=== PATIENT | female | born 1970 | race Caucasian/White ===

== ENCOUNTER 2018-06-18 05:42 | Inpatient (IN) | payer OTHER ==
[2018-06-18] MEDS ORDERED: MIDAZOLAM 1 MG/ML 2 ML INJ (07:27)
[2018-06-18] MEDS ORDERED: DEXAMETHASONE 4 MG/ML 5 ML INJ (07:27)
[2018-06-18] MEDS ORDERED: ONDANSETRON 4 MG INJ (07:27)
[2018-06-18] MEDS ORDERED: FENTAnyl 50 MCG/ML VIAL (07:27)
[2018-06-18] MEDS ORDERED: CEFAZOLIN 1 GM INJ (07:27)
[2018-06-18] MEDS ORDERED: ROCURONIUM 50 MG INJ (07:27)
[2018-06-18] MEDS ORDERED: GLYCOPYRROLATE 0.4 MG INJ (07:27)
[2018-06-18] MEDS ORDERED: PROPOFOL 20 ML (07:27)
[2018-06-18] MEDS ORDERED: NEOSTIGMINE 3 MG/3 ML SYRINGE (07:27)
[2018-06-18] MEDS ORDERED: morphine SULFATE/PF (10 MG/10 ML) INJ (07:28)
[2018-06-18] MEDS ORDERED: NALOXONE (0.4 MG/ML) INJ IV (07:30)
[2018-06-18] MEDS ORDERED: ONDANSETRON 4 MG INJ IV ×2 (07:30)
[2018-06-18] MEDS ORDERED: FENTAnyl 50 MCG/ML VIAL IV ×3 (07:30)
[2018-06-18] MEDS ORDERED: EPHEDrine 25 MG/5 ML SYG IV (07:30)
[2018-06-18] MEDS ORDERED: KETOROLAC 30 MG INJ IV ×2 (07:30→08:00)
[2018-06-18] MEDS ORDERED: OXYCODONE/ACETAMINOPHEN (5/325) TAB PO ×2 (07:30)
[2018-06-18] MEDS ORDERED: NALBUPHINE HCL (10 MG/1 ML) INJ IV (07:30)
[2018-06-18] MEDS ORDERED: DIPHENHYDRAMINE 50 MG INJ IV ×2 (07:30)
[2018-06-18] MEDS ORDERED: TRIMETHOBENZAMIDE 100 MG/ML VIAL IM ×2 (07:30)
[2018-06-18] MEDS ORDERED: MIDAZOLAM 1 MG/ML 2 ML INJ IV (07:30)
[2018-06-18] MEDS ORDERED: LABETALOL HCL 20MG INJ IV (07:30)
[2018-06-18] MEDS ORDERED: IPRATROPIUM (NEB) 0.5 MG/2.5 ML AMP HHN (07:30)
[2018-06-18] MEDS ORDERED: DESFLURANE 15 MIN (07:30)
[2018-06-18] MEDS ORDERED: hydrALAzine 20 MG INJ IV (07:30)
[2018-06-18] MEDS ORDERED: HYDROmorphONE 1 MG/5 ML IV SYRINGE IV ×3 (07:30)
[2018-06-18] MEDS ORDERED: HYDROmorphONE 0.5 MG/0.5 ML SYG IV ×2 (07:30)
[2018-06-18] MEDS ORDERED: ALBUTEROL 0.083% (NEB) 2.5 MG/3 ML AMP HHN (07:30)
[2018-06-18] MEDS: CEFAZOLIN 1 GM/50 ML (PMX) 50 ML IVPB ×3 (07:50→23:37)
[2018-06-18] MEDS: metroNIDAZOLE 500 MG/NS (PMX) 100 ML IVPB (07:55)
[2018-06-18] MEDS ORDERED: METOCLOPRAMIDE 10 MG INJ IV (08:00)
[2018-06-18] MEDS ORDERED: morphine 2 MG INJ IV (08:00)
[2018-06-18] MEDS: LACTATED RINGER'S 1,000 ML IV ×3 (09:36→23:37)
[2018-06-18] MEDS: ONDANSETRON 4 MG INJ IV (10:07)
[2018-06-18] MEDS: MEPERIDINE 25 MG INJ IV (10:08)
[2018-06-19] MEDS: LACTATED RINGER'S 1,000 ML IV ×2 (03:30→15:01)
[2018-06-19 05:32] LABS: ADD MAN DIFF? NO
[2018-06-19 05:39] LABS: BASOPHILS % 0.2 % (0.0-2.0); EOSINOPHILS % 0.1 % (0.0-7.0); HEMATOCRIT 32.7 % (37.0-47.0); HEMOGLOBIN 11.2 g/dl (12.0-16.0); LYMPHOCYTES # 2.1 10^3/ul (0.8-2.9); LYMPHOCYTES % 16.1 % (15.0-51.0); MEAN CORPUSCULAR HEMOGLOBIN 33.8 pg (29.0-33.0); MEAN CORPUSCULAR HGB CONC 34.3 g/dl (32.0-37.0); MEAN CORPUSCULAR VOLUME 98.8 fl (82.0-101.0); MEAN PLATELET VOLUME 12.4 fl (7.4-10.4); MONOCYTE # 1.1 10^3/ul (0.3-0.9); MONOCYTES % 8.7 % (0.0-11.0); NEUTROPHIL # 9.8 10^3/ul (1.6-7.5); NEUTROPHILS % 74.5 % (39.0-77.0); PLATELET COUNT 167 10^3/UL (140-415); RED BLOOD COUNT 3.31 10^6/ul (4.20-5.40)
[2018-06-19 05:39] LABS: WHITE BLOOD COUNT 13.1 10^3/ul (4.8-10.8)
[2018-06-19 06:17] LABS: ANION GAP 5 (5-13); BLOOD UREA NITROGEN 9 mg/dl (7-20); CALCIUM 8.5 mg/dl (8.4-10.2); CARBON DIOXIDE 28 mmol/L (21-31); CHLORIDE 108 mmol/L (97-110); CREATININE 0.64 mg/dl (0.44-1.00); Estimated GFR > 60 mL/min (>60); GLUCOSE 108 mg/dl (70-220); POTASSIUM 3.9 mmol/L (3.5-5.1); SODIUM 141 mmol/L (135-144)
[2018-06-19] MEDS: HYDROCODONE/APAP (5/325) TAB PO (08:24)
[2018-06-19] MEDS: ENOXAPARIN 40 MG/0.4 ML SYG SC (08:25)
[2018-06-19] MEDS ORDERED: BISACODYL 10 MG SUPP PR (22:30)
[2018-06-19] MEDS: BISACODYL 30 ML ENEMA PR (22:30)
[2018-06-19] MEDS: DOCUSATE SODIUM 100 MG CAP PO (22:48)
[2018-06-19] MEDS: BISACODYL (EC) 5 MG TAB PO (22:48)
[2018-06-19] MEDS: MAGNESIUM HYDROXIDE 30ML CUP PO (22:48)
[2018-06-20] MEDS: LACTATED RINGER'S 1,000 ML IV (03:08)
[2018-06-20] MEDS: ENOXAPARIN 40 MG/0.4 ML SYG SC (08:27)
== END 2018-06-20 10:55 | disposition home or self-care (01) | DRG 743 ==
LOC: REC 05:42 → MS1 10:56
PROC: 0UT90ZZ Resection of Uterus, Open Approach (ICD-10-PCS; principal; 2018-06-18 07:23)
PROC: 0UT20ZZ Resection of Bilateral Ovaries, Open Approach (ICD-10-PCS; 2018-06-18 07:23)
PROC: 0UT70ZZ Resection of Bilateral Fallopian Tubes, Open Approach (ICD-10-PCS; 2018-06-18 07:23)
DX: D25.9 Leiomyoma of uterus, unspecified (principal); N80.0 Endometriosis of uterus; N92.1 Excessive and frequent menstruation with irregular cycle; E78.5 Hyperlipidemia, unspecified; R10.2 Pelvic and perineal pain; R73.03 Prediabetes; E66.9 Obesity, unspecified; Z68.29 Body mass index [BMI] 29.0-29.9, adult
CPT/HCPCS: 80048; 85025; 88305

== ENCOUNTER 2018-07-10 19:22 | Emergency (ER) | payer OTHER ==
[2018-07-10 21:00] LABS: ADD MAN DIFF? NO
[2018-07-10 21:03] LABS: BASOPHILS % 0.4 % (0.0-2.0); EOSINOPHILS # 0.2 10^3/ul (0.0-0.5); EOSINOPHILS % 1.7 % (0.0-7.0); HEMATOCRIT 37.1 % (37.0-47.0); HEMOGLOBIN 12.5 g/dl (12.0-16.0); LYMPHOCYTES # 3.2 10^3/ul (0.8-2.9); LYMPHOCYTES % 31.9 % (15.0-51.0); MEAN CORPUSCULAR HEMOGLOBIN 33.2 pg (29.0-33.0); MEAN CORPUSCULAR HGB CONC 33.7 g/dl (32.0-37.0); MEAN CORPUSCULAR VOLUME 98.7 fl (82.0-101.0); MEAN PLATELET VOLUME 11.4 fl (7.4-10.4); MONOCYTE # 0.7 10^3/ul (0.3-0.9); MONOCYTES % 7.1 % (0.0-11.0); NEUTROPHIL # 5.9 10^3/ul (1.6-7.5); NEUTROPHILS % 58.5 % (39.0-77.0); PLATELET COUNT 224 10^3/UL (140-415); RED BLOOD COUNT 3.76 10^6/ul (4.20-5.40); RED CELL DISTRIBUTION WIDTH 11.4 % (11.5-14.5)
[2018-07-10 21:03] LABS: WHITE BLOOD COUNT 10.1 10^3/ul (4.8-10.8)
[2018-07-10 21:20] LABS: ALANINE AMINOTRANSFERASE 24 IU/L (13-69); ALBUMIN 4.3 g/dl (3.3-4.9); ALBUMIN/GLOBULIN RATIO 1.26; ALKALINE PHOSPHATASE 94 IU/L (42-121); ANION GAP 9 (5-13); ASPARTATE AMINO TRANSFERASE 26 IU/L (15-46); BILIRUBIN,INDIRECT 0.5 mg/dl (0-1.1); BILIRUBIN,TOTAL 0.5 mg/dl (0.2-1.3); BLOOD UREA NITROGEN 13 mg/dl (7-20); CALCIUM 9.3 mg/dl (8.4-10.2); CARBON DIOXIDE 30 mmol/L (21-31); CHLORIDE 103 mmol/L (97-110); Estimated GFR > 60 mL/min (>60); GLUCOSE 101 mg/dl (70-220); POTASSIUM 4.2 mmol/L (3.5-5.1); SODIUM 142 mmol/L (135-144); TOTAL PROTEIN 7.7 g/dl (6.1-8.1)
[2018-07-10 21:33] LABS: INR 0.91; PROTIME 12.4 Sec (11.9-14.9)
[2018-07-10 21:34] LABS: PARTIAL THROMBOPLASTIN TIME 30.6 Sec (23.0-35.0)
== END 2018-07-10 23:03 | disposition home or self-care (01) ==
LOC: FTE 19:22
DX: M79.661 Pain in right lower leg (principal); M79.662 Pain in left lower leg
CPT/HCPCS: 80053; 85025; 85610; 85730; 93970; 99284-25

== ENCOUNTER 2018-09-07 12:57 | Emergency (ER) | payer OTHER ==
[2018-09-07 14:43] LABS: ADD MAN DIFF? NO
[2018-09-07 14:46] LABS: BASOPHILS % 0.4 % (0.0-2.0); EOSINOPHILS # 0.1 10^3/ul (0.0-0.5); EOSINOPHILS % 0.7 % (0.0-7.0); HEMATOCRIT 40.2 % (37.0-47.0); HEMOGLOBIN 13.6 g/dl (12.0-16.0); LYMPHOCYTES # 2.7 10^3/ul (0.8-2.9); LYMPHOCYTES % 28.8 % (15.0-51.0); MEAN CORPUSCULAR HEMOGLOBIN 33.2 pg (29.0-33.0); MEAN CORPUSCULAR HGB CONC 33.8 g/dl (32.0-37.0); MEAN PLATELET VOLUME 11.8 fl (7.4-10.4); MONOCYTE # 0.7 10^3/ul (0.3-0.9); MONOCYTES % 7.1 % (0.0-11.0); NEUTROPHIL # 5.9 10^3/ul (1.6-7.5); NEUTROPHILS % 62.7 % (39.0-77.0); PLATELET COUNT 193 10^3/UL (140-415); RED CELL DISTRIBUTION WIDTH 11.8 % (11.5-14.5)
[2018-09-07 14:46] LABS: WHITE BLOOD COUNT 9.4 10^3/ul (4.8-10.8)
[2018-09-07] MEDS: ONDANSETRON 4 MG INJ IV (14:47)
[2018-09-07] MEDS: SOD CHLORIDE 0.9% 1,000 ML IV (14:48)
[2018-09-07] MEDS: ACETAMINOPHEN 500 MG TAB PO (14:50)
[2018-09-07 14:56] LABS: ADD UMIC YES; UR ASCORBIC ACID NEGATIVE (NEGATIVE); UR BILIRUBIN (Dip) NEGATIVE (NEGATIVE); UR BLOOD (Dip) NEGATIVE (NEGATIVE); UR CLARITY CLOUDY (CLEAR); UR COLOR YELLOW (YELLOW); UR GLUCOSE (Dip) NEGATIVE (NEGATIVE); UR KETONES (Dip) NEGATIVE (NEGATIVE); UR LEUKOCYTE ESTERASE (Dip) NEGATIVE Leu/ul (NEGATIVE); UR NITRITE (Dip) NEGATIVE (NEGATIVE); UR RBC 0 /HPF (0-5); UR SPECIFIC GRAVITY (Dip) 1.004 (1.003-1.030); UR TOTAL PROTEIN (Dip) NEGATIVE (NEGATIVE); UR UROBILINOGEN (Dip) NEGATIVE (NEGATIVE); UR WBC 0 /HPF (0-5)
[2018-09-07 15:05] LABS: ALANINE AMINOTRANSFERASE 72 IU/L (13-69); ALBUMIN/GLOBULIN RATIO 1.25; ALKALINE PHOSPHATASE 95 IU/L (42-121); ANION GAP 10 (5-13); ASPARTATE AMINO TRANSFERASE 38 IU/L (15-46); BILIRUBIN,TOTAL 0.4 mg/dl (0.2-1.3); BLOOD UREA NITROGEN 12 mg/dl (7-20); CALCIUM 9.2 mg/dl (8.4-10.2); CARBON DIOXIDE 29 mmol/L (21-31); CHLORIDE 107 mmol/L (97-110); CREATININE 0.73 mg/dl (0.44-1.00); Estimated GFR > 60 mL/min (>60); GLUCOSE 109 mg/dl (70-220); POTASSIUM 4.3 mmol/L (3.5-5.1); SODIUM 146 mmol/L (135-144)
[2018-09-07 15:17] LABS: ALBUMIN 4.5 g/dl (3.3-4.9); BILIRUBIN,INDIRECT 0.4 mg/dl (0-1.1); TOTAL PROTEIN 8.1 g/dl (6.1-8.1)
== END 2018-09-07 16:35 | disposition home or self-care (01) ==
LOC: FTE 12:57
DX: R42 Dizziness and giddiness (principal); R11.0 Nausea
CPT/HCPCS: 70450; 80053; 81001; 84703; 85025; 96361; 96374; 99285-25